=== PATIENT | male | born 1990 | race Caucasian/White ===

== ENCOUNTER 2019-11-22 23:17 | Emergency (ER) | payer MEDICAID ==
[~2019-11-22] VITALS: Ht 170.2 cm; Wt 75.0 kg
[2019-11-23] MEDS ORDERED: IBUPROFEN 600MG TABLET PO ONE (02:45)
[2019-11-23 05:46] VITALS: BP 121/74
== END 2019-11-23 05:47 | disposition home or self-care (01) ==
LOC: ER 23:17
DX: S29.9XXA Unspecified injury of thorax, initial encounter (principal); X58.XXXA Exposure to other specified factors, initial encounter; Y93.89 Activity, other specified; Y92.89 Other specified places as the place of occurrence of the external cause; Y99.8 Other external cause status; F12.10 Cannabis abuse, uncomplicated
CPT/HCPCS: 71101; 99283

== ENCOUNTER 2019-11-23 13:27 | Emergency (ER) | payer MEDICAID ==
[~2019-11-23] VITALS: Ht 170.2 cm; Wt 72.0 kg
[2019-11-23] MEDS ORDERED: KETOROLAC 30MG/ML VIAL IM ONE (17:15)
[2019-11-23] MEDS ORDERED: CYCLOBENZAPRINE 10MG TABLET PO ONE (17:15)
[2019-11-23 17:53] VITALS: BP 122/85
== END 2019-11-23 17:55 | disposition home or self-care (01) ==
LOC: ER 14:06
DX: R07.81 Pleurodynia (principal); F12.10 Cannabis abuse, uncomplicated; M79.10 Myalgia, unspecified site
CPT/HCPCS: 96372; 99283; J1885